=== PATIENT | female | born 1965 | race Caucasian/White ===

== ENCOUNTER → 2019-07-03 | Outpatient (CLI) | payer BC, OTHER ==
--- NOTE | 2019-07-04 07:41 | REP ---
REASON FOR EXAMINATION: Knee pain. The dedicated knee coil could not be utilized to obtain the exam secondary to patient's body habitus. This causes image degradation. There are no priors. There is grade 3 signal change seen in a slightly truncated posterior horn of the medial meniscus. Extensive grade 1 signal changes are also present and the periphery of the medial meniscus particularly mid and posterior components. The anterior horns of the lateral meniscus are within normal limits are within normal limits. The anterior and posterior cruciate ligaments are within intact. The quadriceps and patellar tendons are intact. Mild T2 hypersignal is seen within and surrounding the medial collateral ligament, which is intact. The lateral collateral ligament is intact. The medial and lateral patellar retinacula are intact. There is thinning and irregularity of all articular cartilages. There is a slight joint effusion. There is no Leigh's cyst. There is tricompartmental marginal osteophytosis, which is slight. There is parapatellar plica. IMPRESSION: 1. The posterior horn of the medial meniscus is torn with a larger peripheral component and possibly with a tiny bucket-handle component. 2. There is a medial collateral ligamentous sprain. 3. 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 4. There is a slight joint effusion. 5. There is tricompartmental marginal osteophytosis. 6. Other findings and limitations as described above. Electronically Signed by Morro Lozano DO 07/04/2019 09:23 A
== END ==
LOC: M RAD 10:00
PROVIDERS: ATTEND Physician Assistant
DX: M23.91 Unspecified internal derangement of right knee (principal); M25.461 Effusion, right knee

== ENCOUNTER 2021-11-07 10:44 | Observation (INO) | payer BC, OTHER ==
[~2021-11-07] VITALS: Ht 167.6 cm; Wt 161.9 kg
[~2021-11-07 10:44] MED LIST: FURO20TA2 PO; LIDOCAINE 1% MDV 20ML VIAL SQ PRN; METO1TAB7 PO; MIDAZOLAM INJ 2MG/2ML VIAL (J2250 PER 1MG) IV PRN; VITA100093 PO; VITMTA PO; fentaNYL 100 MCG/2 ML INJECTION IV PRN
[2021-11-07] MEDS ORDERED: dexameTHASONE 10MG/1ML VIAL PRES.FREE (J1100 PER 1MG) XX ONE (12:10)
[2021-11-07] MEDS ORDERED: ROPIvacaine 0.5% 30ML INJECTION (J2795 PER 1MG) XX ONE ×2 (12:10→12:40)
[2021-11-07] MEDS ORDERED: EPINEPHrine INJ 1 MG/ML 1ML AMP XX ONE (12:10)
[2021-11-07] MEDS ORDERED: LIDOCAINE 1% MDV 20ML VIAL XX ONE (12:10)
[2021-11-07] MEDS ORDERED: ACETAMINOPHEN 1000MG 100ML IV BTL (OFIRMEV) (J0131 PER 10MG) As Ordered ONE (12:11)
[2021-11-07] MEDS ORDERED: LIDOCAINE 2% 100MG/5ML SDV (FOR ANES.) As Ordered ONE (12:11)
[2021-11-07] MEDS ORDERED: propofoL 200 MG/20 ML VIAL As Ordered ONE (12:11)
[2021-11-07] MEDS ORDERED: dexameTHASONE 4 MG/ML 1ML VIAL (J1100 PER 1MG) As Ordered ONE (12:11)
[2021-11-07] MEDS ORDERED: ONDANSETRON 4MG/2ML VIAL As Ordered ONE (12:11)
[2021-11-07] MEDS ORDERED: SUGAMMADEX SODIUM 500 MG/5 ML VIAL (BRIDION) As Ordered ONE (12:11)
[2021-11-07] MEDS ORDERED: KETOROLAC 60MG 2ML VIAL As Ordered ONE (12:11)
[2021-11-07] MEDS ORDERED: ROCURONIUM BROMIDE 50 MG/5 ML VIAL As Ordered ONE (12:11)
[2021-11-07] MEDS ORDERED: MIDAZOLAM INJ 2MG/2ML VIAL (J2250 PER 1MG) As Ordered ONE (12:11)
[2021-11-07] MEDS ORDERED: fentaNYL 100 MCG/2 ML INJECTION As Ordered ONE (12:12)
[2021-11-07] MEDS ORDERED: SCOPOLAMINE 1MG TRANSDERMAL PATCH TOP ONE (12:15)
[2021-11-07] MEDS ORDERED: LR 1,000 ML IV ONE (12:20)
[2021-11-07] MEDS ORDERED: BACITRACIN OINTMENT 30GM TUBE As Ordered ONE (14:14)
[2021-11-07] MEDS ORDERED: ceFAZolin 2 GM/D5W 50 ML IV BAG (J0690 PER 500MG) As Ordered ONE (14:39)
[2021-11-07] MEDS ORDERED: ceFAZolin 1GM VIAL (J0690 PER 500MG) As Ordered ONE (14:39)
[2021-11-07] MEDS ORDERED: HYDR-3713 PO (16:05)
[2021-11-07] MEDS ORDERED: LR 1,000 ML IV SCH (16:25)
[2021-11-07] MEDS ORDERED: MEPERIDINE INJ 25 MG/ML VIAL (J2175) IV PRN (16:25)
[2021-11-07] MEDS ORDERED: ONDANSETRON 4MG/2ML VIAL IV PRN (16:25)
[2021-11-07] MEDS: fentaNYL 100 MCG/2 ML INJECTION IV PRN ×4 (16:31→16:51)
[2021-11-07] MEDS: oxyCODONE 5MG TAB PO PRN ×2 (16:33→17:19)
[2021-11-07] MEDS ORDERED: fentaNYL 100 MCG/2 ML INJECTION IV PRN (17:30)
[2021-11-07] MEDS: HYDROMORPHONE HCL 0.5 MG/ 0.5 ML SYRINGE (J1170 PER 1) IV PRN ×2 (17:34→17:39)
[2021-11-07 20:40] LABS: HEMOGLOBIN 12.9 g/dl (12.0-15.5); MEAN CORPUSCULAR HEMOGLOBIN 28.4 pg (27.0-33.0); MEAN CORPUSCULAR HGB CONC 32.3 g/dl (32.0-36.5); MEAN CORPUSCULAR VOLUME 88.1 fl (80.0-96.0); PLATELET COUNT, AUTOMATED 228 10^3/uL (150-450); RED BLOOD COUNT 4.54 10^6/uL (4.00-5.40); WHITE BLOOD COUNT 12.1 10^3/uL (4.0-10.0)
[2021-11-07 21:01] LABS: CALCIUM LEVEL 9.1 MG/DL (8.5-10.1); CREATININE FOR GFR 1.28 MG/DL (0.55-1.30); GLOMERULAR FILTRATION RATE 46.1 (>51); POTASSIUM SERUM 4.5 MEQ/L (3.5-5.1)
[2021-11-07 21:30] VITALS: BP 136/74
[2021-11-07 22:00] VITALS: BP 108/52
[2021-11-07] MEDS ORDERED: METO1TAB7 PO (23:13)
[2021-11-07] MEDS ORDERED: HYDR-4571 PO (23:13)
[2021-11-07] MEDS ORDERED: VITA100093 PO (23:13)
[2021-11-07] MEDS ORDERED: VITMTA PO (23:13)
[2021-11-07] MEDS ORDERED: FURO20TA2 PO (23:13)
[2021-11-07] MEDS ORDERED: HOME MED LIST COMPLETE! XX SCH (23:15)
[2021-11-08] VITALS: O2SAT 91
[2021-11-08 02:00] VITALS: BP 113/61
[2021-11-08 04:00] VITALS: O2SAT 94
[2021-11-08 06:00] VITALS: BP 121/65
[2021-11-08 06:56] LABS: HEMATOCRIT 37.1 % (36.0-47.0); HEMOGLOBIN 11.9 g/dl (12.0-15.5); MEAN CORPUSCULAR HEMOGLOBIN 28.3 pg (27.0-33.0); MEAN CORPUSCULAR HGB CONC 32.1 g/dl (32.0-36.5); MEAN CORPUSCULAR VOLUME 88.3 fl (80.0-96.0); PLATELET COUNT, AUTOMATED 218 10^3/uL (150-450); WHITE BLOOD COUNT 11.4 10^3/uL (4.0-10.0)
[2021-11-08 07:17] LABS: CREATININE FOR GFR 1.11 MG/DL (0.55-1.30); GLOMERULAR FILTRATION RATE 54.3 (>51); POTASSIUM SERUM 4.2 MEQ/L (3.5-5.1)
[2021-11-08] MEDS ORDERED: HEPARIN SOD (PORCINE) 5000UNITS/ML 1ML VIAL/SYRINGE SC SCH (09:00)
== END 2021-11-08 09:30 | disposition home or self-care (01) ==
LOC: M SDC 10:44 → M ED INP 10:45 → M MS5PR 20:35
PROVIDERS: ADMIT Family Medicine; ATTEND Family Medicine
DX: S52.552A Other extraarticular fracture of lower end of left radius, initial encounter for closed fracture (principal); X58.XXXA Exposure to other specified factors, initial encounter; Y92.89 Other specified places as the place of occurrence of the external cause; Y93.89 Activity, other specified; Y99.8 Other external cause status; R09.02 Hypoxemia; G47.33 Obstructive sleep apnea (adult) (pediatric); I10 Essential (primary) hypertension; Z79.899 Other long term (current) drug therapy
CPT/HCPCS: 25607; 36415; 76000; 80048; 85027; 93005; C1713; J0131; J0690; J1100; J1170; J1885; J2250; J2405; J3010

== ENCOUNTER → 2021-11-14 | Outpatient (CLI) | payer BC, OTHER ==
[~2021-11-14] MED LIST changes: +HYDR-3713 PO; +HYDR-4571 PO; -LIDOCAINE 1% MDV 20ML VIAL SQ PRN; -MIDAZOLAM INJ 2MG/2ML VIAL (J2250 PER 1MG) IV PRN; -fentaNYL 100 MCG/2 ML INJECTION IV PRN
== END ==
LOC: M SOG 08:26
PROVIDERS: ATTEND Physician Assistant
DX: S52.532A Colles' fracture of left radius, initial encounter for closed fracture (principal); W18.30XA Fall on same level, unspecified, initial encounter; Y92.009 Unspecified place in unspecified non-institutional (private) residence as the place of occurrence of the external cause

== ENCOUNTER → 2021-12-13 | Outpatient (CLI) | payer BC, OTHER | LOC: M SOG 08:13 | PROVIDERS: ATTEND Physician Assistant | DX: S52.532D Colles' fracture of left radius, subsequent encounter for closed fracture with routine healing (principal) ==

== ENCOUNTER → 2022-01-15 | Outpatient (CLI) | payer BC, OTHER | LOC: M SOG 08:04 | PROVIDERS: ATTEND Physician Assistant | DX: S52.532D Colles' fracture of left radius, subsequent encounter for closed fracture with routine healing (principal); X58.XXXD Exposure to other specified factors, subsequent encounter; Y92.9 Unspecified place or not applicable; Y93.9 Activity, unspecified; Y99.9 Unspecified external cause status ==